=== PATIENT | female | born 1940 | race Caucasian/White ===

== ENCOUNTER 2019-02-02 14:19 | Emergency (ER) | payer MEDICARE, OTHER ==
[~2019-02-02] VITALS: Ht 170.2 cm; Wt 104.3 kg
--- NOTE | 2019-02-02 14:26 | ER.PDOC ---
General Chief Complaint: Requesting Medical Care Stated Complaint: KNEE PAIN Time seen by MD: 14:25 Source: patient Exam Limitations: no limitations History of Present Illness Initial Comments Right knee and hip pain S/P fall. She refused hitting her head. Occurred: just prior to arrival Severity: moderate Injuries/Pain Location: lower extremity Context: Lost Balance Loss of Consciousness: No Loss of Consciousness Associated Symptoms: denies symptoms Allergies: Coded Allergies: Penicillins (Verified Allergy, Unknown, R, 02/02/19) MEDS Reported Medications Warfarin Sodium (COUMADIN) 5 Mg Tablet, 1 TAB PO DAILY, #90 TAB 3 Refills 02/02/19 Diltiazem HCl (Diltiazem ER) 180 Mg Tab.er.24h, 1 TAB PO QD for 30 Days, #30 TAB 0 Refills 02/02/19 Sotalol Hcl (SOTALOL) 80 Mg Tablet, 1 TAB PO DAILY24, #180 TAB 3 Refills 02/02/19 Review of Systems Constitutional: no symptoms reported Respiratory: no symptoms reported Cardiovascular: no symptoms reported Gastrointestinal: no symptoms reported Musculoskeletal: see HPI All Other Systems: Reviewed and Negative Physical Exam General Appearance: No Apparent Distress, WD/WN Head: No Evidence of Injury Eyes: bilateral eye normal inspection Neck: Non-Tender, Normal Alignment, Nexus criteria neg, Normal Inspection Cardiovascular/Respiratory: Regular Rate, Rhythm, No M/R/G, Normal Peripheral Pulses, No JVD, Normal Breath Sounds, No Respiratory Distress Back: Normal Inspection, No CVA Tenderness, No Vertebral Tenderness Extremities: Pain With Movement (right hip), Tenderness (right knee with swelling) 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, No Motor/Sensory Deficits, Alert, Normal Mood/Affect, Oriented x 3 Skin: Normal Color, Warm/Dry [place] Coma Score Best Eye Response: (4) Open Spontaneously Best Verbal Response: (5) Oriented Best Motor Response: (6) Obeys Commands Results/Orders Results/Orders Orders - KATHERYN ZHANG MD Xr Knee Rt 2v (02/02/19 14:23) Ct Pelvis Wo Iv Contrast (02/02/19 14:23) Vital Signs Date Time Temp Pulse Resp B/P (MAP) Pulse Ox O2 Delivery O2 Flow Rate FiO2 02/02/19 15:00 18 02/02/19 15:00 97.2 78 18 155/88 (110) 95 Room Air 10/20/19 14:29 97.2 74 18 163/90 (114) 95 Room Air 02/02/19 14:26 18 02/02/19 14:22 97.2 74 18 95 Room Air Progress Progress Discussed with patient and son and she has a walker to use at home. EKG/XRAY/CT/US XRAY Comments: No fracture of left knee CT Comments: No fracture of pelvis Departure Time of Disposition: 16:33 Disposition: 01 HOME, SELF-CARE Impression: Primary Impression: Right knee injury Additional Impression: Injury of hip, right Condition: Stable Additional Instructions: Ice Tramadol F/U with your PCP in 1 week Duration or Time Spent with Pa: 45 mins Problem Qualifiers Primary Impression: Right knee injury Encounter type: initial encounter Qualified Codes: S89.91XA - Unspecified injury of right lower leg, initial encounter Additional Impression: Injury of hip, right Encounter type: initial encounter Qualified Codes: S79.911A - Unspecified injury of right hip, initial encounter KATHERYN ZHANG MD Feb 02, 2019 14:26
[2019-02-02 14:29] VITALS: BP 163/90
--- NOTE | 2019-02-02 14:30 | NUR ---
ARRIVAL PATIENT ARRIVED TO ED6 VIA GURNEY BY [facility], EMS WAS DINING AT [facility] WHEN SHE GOT UP TO USE THE RESTROOM SHE WAS WALKING UP AN INCLINE AND HER FOOT GOT CAUGHT CAUSING HER TO FALL ON HER RIGH KNEE, DENIES ANY OTHER INJURY OR LOC, ABRASION AND DEFORMITY NOTED TO RIGHT KNEE AREA. EMS ATTEMPTED IV ACCESS WITHOUT SUCCESS, DID GIVE MORPHINE 2MG IM VICE CHAIRMAN, PATIENT IS AWAKE ALERT ORIENTED X4, FAMILY AT BEDSIDE.
[2019-02-02] MEDS ORDERED: WARF5TAB PO (14:54)
[2019-02-02] MEDS ORDERED: SOTA80TA PO (14:54)
[2019-02-02] MEDS ORDERED: DILT180T7 PO (14:54)
[2019-02-02 15:00] VITALS: BP 155/88
--- NOTE | 2019-02-02 15:01 | NUR ---
CAT SCAN PATIENT TO CAT SCAN WITH ARPAN FROM RADIOLOGY.
--- NOTE | 2019-02-02 15:18 | NUR ---
CAT SCAN PATIENT BACK FROM CAT SCAN..
--- NOTE | 2019-02-02 15:31 | DIREP ---
PROCEDURE:XRAY KNEE 2 VWS-RT COMPARISON:None. INDICATIONS:Pain/injury FINDINGS: BONES:Early spurring of the superior patellar pole. JOINTS:Small joint effusion. No evidence of dislocation. SOFT TISSUES:Moderate ventral and lateral, superficial soft tissue swelling. OTHER:No additional findings. CONCLUSION: No evidence of acute fracture. Superficial soft tissue swelling as above Dictated by: Ayesha Santoyo M.D. on 02/02/2019 at 03:29 PM
--- NOTE | 2019-02-02 15:56 | DIREP ---
PROCEDURE:CT PELVIS W/O COMPARISON:None. INDICATIONS:Right hip pain/injury S/P fall TECHNIQUE:Helical CT imaging of the pelvis was obtained. Post processing reconstructed images in the sagittal and coronal planes were generated and reviewed. No IV contrast was administered FINDINGS: BONES: There is no evidence of fracture. Morphology the osseous structures appears physiologic. SOFT TISSUES: The soft tissues are within normal limits. Atheromatous calcifications noted. Prior hysterectomy JOINT: The alignment is anatomic. There is no dislocation. OTHER: Degenerative changes of the included portions of the lower lumbar spine. CONCLUSION:No evidence of acute fracture Dictated by: Ayesha Santoyo M.D. on 02/02/2019 at 03:52 PM
== END 2019-02-02 17:14 | disposition home or self-care (01) ==
LOC: ER 14:19 → EDBD 14:19 → ER 17:14
DX: S79.911A Unspecified injury of right hip, initial encounter (principal); S89.91XA Unspecified injury of right lower leg, initial encounter; Z79.01 Long term (current) use of anticoagulants; Z88.0 Allergy status to penicillin; W19.XXXA Unspecified fall, initial encounter; Y93.89 Activity, other specified; Y92.89 Other specified places as the place of occurrence of the external cause; Y99.8 Other external cause status
CPT/HCPCS: 72192; 73560; 99284

== ENCOUNTER 2020-10-06 18:44 | Emergency (ER) | payer MEDICARE, OTHER ==
[~2020-10-06] VITALS: Ht 162.6 cm; Wt 145.1 kg
[~2020-10-06 18:44] MED LIST: DILT180T7 PO; SOTA80TA PO; WARF5TAB2 PO
--- NOTE | 2020-10-06 19:50 | NUR ---
Patient presents to ED with C/O unable to urinate, lower abdominal pain. Patient's son states, "We have been to [facility] two days in a row and they haven't done anything for her." She states, "I'm hoping to be admitted here because I need to be." Patient is alert, rates pain 9/10 in lower abdomen radiating to the right side of back. Denies N/V/D, fever. Patient has history of cancer and one kidney has been removed. She also had a kidney stone about three years ago. No other pertinent history.
[2020-10-06 20:06] VITALS: BP 114/61
[2020-10-06 20:19] VITALS: BP 114/61
--- NOTE | 2020-10-06 20:59 | ER.PDOC ---
General Chief Complaint: Female Urogenital Problems Stated Complaint: FEMALE Time seen by MD: 20:48 Source: patient, family Exam Limitations: no limitations History of Present Illness Initial Comments 80-year-old female diagnosed with kidney stone at [facility] brought in by son with complaint of patient unable to urinate today. He states she is showing signs of hydronephrosis and was to have her checked again. Patient has been seen at [facility] twice in the past 24 hours both times she was discharged home.Patient had labs drawn at [facility] on October 04 at 2327 and her chemistry was within normal limits. BUN was 20 creatinine 1.2 creatinine clearance 37.09. There was a CT performed of her abdomen pelvis however the reading is not included. Per the son she had a 5 mm stone. Allergies: Coded Allergies: Penicillins (Verified Allergy, Unknown, R, 02/02/19) Home Meds Reported Medications Warfarin Sodium (COUMADIN) 5 Mg Tablet, 1 TAB PO DAILY, #90 TAB 3 Refills 02/02/19 Diltiazem HCl (Diltiazem ER) 180 Mg Tab.er.24h, 1 TAB PO QD for 30 Days, #30 TAB 0 Refills 02/02/19 Sotalol Hcl (SOTALOL) 80 Mg Tablet, 1 TAB PO DAILY24, #180 TAB 3 Refills 02/02/19 Past Medical History Medical History: cardiac problems, hypertension, renal disease Surgical History: cholecystectomy, pacemaker/ICD Social History Alcohol Use: none Drug Use: none Review of Systems Constitutional: no symptoms reported EENTM: no symptoms reported Respiratory: no symptoms reported Cardiovascular: no symptoms reported Gastrointestinal: nausea Physical Exam General Appearance: No Apparent Distress, WD/WN EENT: nml ENT inspection Neck: nml inspection, non-tender Cardiovascular/Respiratory: Regular Rate, Rhythm, Normal Peripheral Pulses Abdomen: Soft, Tenderness Back: CVA tenderness Extremities: Normal Range of Motion, Normal Inspection, No Calf Tenderness 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 (10/06/20 22:31) Ekg-Routine (10/06/20 22:31) Lidocaine Hcl (Lidocaine 1% Vial) (10/06/20 23:32) Ceftriaxone Sodium (Rocephin) (10/06/20 23:32) Fentanyl Citrate/Pf (Sublimaze) (10/06/20 23:36) Vital Signs Date Time Temp Pulse Resp B/P (MAP) Pulse Ox O2 Delivery O2 Flow Rate FiO2 10/06/20 20:19 98.7 75 18 10/06/20 20:06 98.7 75 18 95 10/06/20 20:06 98.7 75 18 114/61 (78) 95 Laboratory Tests Test 10/06/20 21:08 10/06/20 21:23 10/06/20 21:35 10/06/20 22:57 Urine Collection Type RANDOM Urine Color BROWN Urine Appearance CLOUDY Urine Bilirubin MODERATE (NEGATIVE) H Urine Ictotest NEGATIVE (NEGATIVE) Urine Ketones 15 mg/dL (NEGATIVE) H Urine Specific [place] 1.025 (1.005-1.030) Urine pH 5.0 (4.5-8.0) Urine Protein >=300 mg/dL (NEGATIVE) H Urine Urobilinogen 0.2 E.U./dL (0.2) Urine Nitrate POSITIVE (NEGATIVE) H Urine Leukocyte Esterase SMALL (NEGATIVE) H Urine Glucose (Auto)(UA) NEGATIVE (NEGATIVE) Urine Blood LARGE (NEGATIVE) H Urine RBC TNTC RBC/HPF (NONE SEEN) H Urine WBC TNTC WBC/HPF (0-2) H Urine Squamous Epithelial Cells MANY #/HPF (FEW) Urine Bacteria MANY (NONE SEEN) H Urine Other MUCOUS 1+ #/HPF White Blood Count 15.4 10^3/uL (4.5-11.0) H Red Blood Count 4.35 10^6/uL (4.00-5.20) Hemoglobin 13.1 g/dL (12.0-15.0) Hematocrit 42.3 % (36.0-46.0) Mean Corpuscular Volume 97.2 fL (78-100) Mean Corpuscular Hemoglobin 30.1 pg (26-34) Mean Corpuscular Hemoglobin Concent 31.0 g/dL (33-36.5) L Red Cell Distribution Width 13.7 % (11.5-14.5) Platelet Count 93 10^3/uL (150-400) L Mean Platelet Volume 11.7 fL (7.8-11.0) H Neutrophils (%) (Auto) 87.7 % (41.0-85.0) H Lymphocytes (%) (Auto) 5.2 % (24.0-44.0) *L Monocytes (%) (Auto) 6.1 % (5.0-12.0) Neutrophils # (Auto) 13.5 10^3/uL (1.8-7.7) H Lymphocytes # (Auto) 0.80 10^3/uL1 (1.0-4.8) L Monocytes # (Auto) 0.9 10^3/uL (0.3-0.8) H Absolute Immature Granulocyte (auto 0.14 10^3 u/L (0-2) Absolute Eosinophils (auto) 0.0 10^3/uL (0.0-0.2) Immature Granulocytes % 0.90 % (0.00-0.50) H Eosinophils % 0.0 % (0.0-5.0) Basophils % 0.1 % (0.0-0.2) Basophils # 0.0 10^3/uL (0.0-0.1) Differential Total Cells Counted 100 #CELLS Segmented Neutrophils 86 % (31-76) H Band Neutrophils 4 % (2-6) Lymphocytes 6 % (25-36) L Monocytes 4 % (3-9) Platelet Estimate DECREASED Platelet Morphology NORMAL Blood Morphology Comment NORMAL MORPHOLOGY Prothrombin Time 31.6 SEC (9.6-12.0) H Prothrombin Time INR (Non-Therap) 3.1 Activated Partial Thromboplast Time 44.3 SEC (24.67-30.72) Sodium Level 135 mmol/L (132-145) Potassium Level 4.5 mmol/L (3.6-5.2) Chloride Level 102.0 mmol/L (96-109) Carbon Dioxide Level 20.9 mmol/L (20.0-32) Glucose Level 114 mg/dL (70-110) H Blood Urea Nitrogen 33 mg/dL (7-18) H Creatinine 4.43 mg/dL (0.59-1.40) *H Calcium Level 8.4 mg/dL (8.4-10.5) Anion Gap 16.6 Estimated GFR () 11.6 (>/=60) Est GFR (CKD-EPI)(Non-Afr Ghanaian) 9.6 (>/=60) BUN/Creatinine Ratio 7.[address] scan was repeated here which showed a 5 mm proximal right ureter stone with mild upstream hydronephrosis. There is also moderate right perinephric stranding patient has a white blood cell count of 15.4 with 87% neutrophils she also has a UTI her UA shows positive nitrates small leuk esterase and too nu merous to count white blood cells red blood cells and many bacteria patient also has worsening renal function when she was seen at [facility] on 621 her creatinine was 1.2 today her creatinine is 4.43 her BUN is also 33 today on 621 at [facility] it was 20. I spoke with our urologist who states because of her work and worsening renal function he is uncomfortable keeping her at our facility since we do not have a alternative financing specialist here. He recommended transferring her to a facility that has both services so that she can received optimal care. Patient and her family are aware of the need for transfer and aware of her laboratory values as well as CT scan results they are agreeable with transfer. Patient has had Rocephin here in the emergency department as she is currently having a line placed. She has been accepted to [facility] as an ER to ER transfer. Dr. Hung Handley is excepting.. I did speak with the urologist on-call who states he is willing to consult. Consult/PCP Time Consult/PCP Called: 23:29 Consult/PCP: Janina Reason/Comments: transfer to facility with nephrology and urology ER DEPART Departure Time of Disposition: 23:25 Disposition: 01 HOME / SELF CARE / HOMELESS Impression: Primary Impression: Ureteral stone with hydronephrosis Additional Impressions: UTI (urinary tract infection) Acute renal failure History of nephrectomy, left Condition: Improved If Transfer, List PT Destinati: [facility] Referrals: PCP,UNKNOWN (PCP) PRIMARY CARE PROVIDER Duration or Time Spent with Pa: 40 Critical Care Note Total Time (mins): 35 Comments Patient required approximately 35 minutes of critical care time. This critical care time includes review of old records from [facility] that the patient brought with her. It required multiple reevaluations of the patient. This time also includes reviewing interpretation of labs and imaging studies. Required contact with our urologist here at our facility. It also required multiple phone calls to other facilities to find one that can accept her for transfer. I also spoke with the warehouse consultant at the accepting facility to explain patient's condition.No procedures are included in this critical care time. Problem Qualifiers MIKE MAHONEY MD Oct 06, 2020 20:59
[2020-10-06 21:00] VITALS: BP 128/71
[2020-10-06 21:30] LABS: BASOPHIL % 0.1 % (0.0-0.2); LYMPHOCYTES % 5.2 % (24.0-44.0); MEAN CORP HGB 30.1 pg (26-34); MONOCYTES # 0.9 10^3/uL (0.3-0.8); MONOCYTES % 6.1 % (5.0-12.0); NEUTROPHIL # 13.5 10^3/uL (1.8-7.7); NEUTROPHILS % 87.7 % (41.0-85.0); PLATELET COUNT 93 10^3/uL (150-400); RED CELL DISTRIBUTION WIDTH 13.7 % (11.5-14.5)
[2020-10-06 21:42] LABS: BILIRUBIN,URINE MODERATE (NEGATIVE); UA COLOR BROWN
[2020-10-06 21:44] LABS: UROBILINOGEN,URINE 0.2 E.U./dL (0.2)
[2020-10-06 22:00] VITALS: BP 134/77
[2020-10-06] MEDS ORDERED: ROCEPHIN 1,000 MG in NS 100ML 100 ML IV SCH (22:00)
--- NOTE | 2020-10-06 22:02 | DIREP ---
PROCEDURE:CT ABDOMEN/PELVIS W/O CONTRAST COMPARISON:None. INDICATIONS:kidney stone TECHNIQUE:Axial images were created through the abdomen and pelvis without intravenous contrast material. No oral contrast was administered. Sagittal and coronal reconstructions were performed from source images. FINDINGS: LUNG BASES:Subsegmental atelectasis/scarring bilaterally. Top-normal heart size. Pacer leads are partially visualized in the right atrium and right ventricle. Left atrial appendage occluder device is partially visualized. Aortic valve replacement noted. LIVER:Normal for technique. BILIARY:The gallbladder is surgically absent. There is no biliary ductal dilatation. PANCREAS:Normal for technique. SPLEEN:Normal for technique. ADRENALS:The left adrenal is not visualized. The right adrenal is mildly thickened without discrete nodule. URINARY TRACT:The left kidney is surgically absent. There is a 5 mm calculus in the proximal right ureter with mild upstream hydronephrosis. There is retained excreted IV contrast in the right renal collecting system. No contour deforming renal mass. Smaller caliceal calculi are seen measuring up to 3 mm. Moderate right perinephric stranding. AORTA/VASCULAR:Severe scattered calcified atherosclerosis without abdominal aortic aneurysm. A right renal artery stent is noted. Patency is not assessed without IV contrast. RETROPERITONEUM:Normal. No mass or adenopathy. BOWEL/MESENTERY:There is mild colonic diverticulosis without evidence for diverticulitis. There is no intestinal obstruction, free fluid, free air or mesenteric inflammatory changes. Normal appendix. ABDOMINAL WALL:Diastasis rectus. Small fat containing ventral hernia defect. PELVIC ORGANS:The uterus is surgically absent. The urinary bladder is collapsed, limiting evaluation. No suspicious adnexal mass. BONES:Median sternotomy changes. No acute or aggressive osseous abnormality. Degenerative changes in the spine. Mild dextroscoliosis of the lumbar spine. OTHER:Noncontrast technique decreases diagnostic sensitivity. CONCLUSION: 1. Status post left nephrectomy. There is a 5 mm calculus in the proximal right ureter with mild upstream hydronephrosis. Additional caliceal calculi measuring up to 3 mm. Retained excreted IV contrast in the right renal collecting system from prior study. 2. Mild uncomplicated colonic diverticulosis and other incidental findings as above. Dictated by: Cesar Lazcano M.D. on 10/06/2020 at 09:52 PM
[2020-10-06 22:13] LABS: BAND NEUTROPHILS 4 % (2-6); LYMPHOCYTE 6 % (25-36); MONOCYTE 4 % (3-9); SEGMENTED NEUTROPHILS 86 % (31-76)
--- NOTE | 2020-10-06 22:59 | PCM.EKG ---
[facility] Test Date: 2020-10-06 Test Time: 22:52:36 Pat Name: RAYRAY BURNETTE Department: Patient ID: [facility]-[id number] Room: Gender: F Database Management Specialist: DUKE : 1940 Requested By: NEDA MAHONEY Order Number: [id number] Reading MD: Nead Mahoney Measurements Intervals [place] Rate: 73 P: [place]: 173 QRS: 78 QRSD: 113 T: 243 QT: 466 QTc: 514 Interpretive Statements Atrial-paced complexes Borderline intraventricular conduction delay Nonspecific T abnormalities, diffuse leads Prolonged QT interval No previous ECG available for comparison Electronically Signed On 10-08-2020 8:29:29 CDT by Neda Mahoney Please click the below link to view image of tracing.
[2020-10-06 23:00] VITALS: BP 109/46
[2020-10-06 23:10] LABS: CALCIUM 8.4 mg/dL (8.4-10.5); CARBON DIOXIDE 20.9 mmol/L (20.0-32)
[2020-10-06] MEDS ORDERED: ROCEPHIN ONE (23:32)
[2020-10-06] MEDS ORDERED: LIDOCAINE 1% VIAL ONE (23:32)
--- NOTE | 2020-10-06 23:34 | NUR ---
Initial contact to [facility] by Dr. Arango.
[2020-10-06] MEDS ORDERED: SUBLIMAZE ONE (23:36)
--- NOTE | 2020-10-06 23:39 | NUR ---
Dr. Handley in the ED at [facility] accepted patient.
--- NOTE | 2020-10-06 23:42 | NUR ---
This RN spoke with GUTIERREZ Landis to secure patient.
[2020-10-06 23:59] VITALS: BP 121/68
--- NOTE | 2020-10-07 00:20 | NUR ---
Dispatch called for need of ALS ground to [facility] ED.
--- NOTE | 2020-10-07 00:30 | NUR ---
[facility] arrived at facility. Report given to [facility]est[facility] Crna.
--- NOTE | 2020-10-07 00:37 | NUR ---
Ambulance leaving facility at this time.
== END 2020-10-07 00:30 | disposition home or self-care (01) ==
LOC: ER 18:44
DX: N17.9 Acute kidney failure, unspecified (principal); N13.6 Pyonephrosis; I10 Essential (primary) hypertension; Z79.01 Long term (current) use of anticoagulants; Z79.899 Other long term (current) drug therapy; Z88.0 Allergy status to penicillin; Z90.49 Acquired absence of other specified parts of digestive tract; Z90.5 Acquired absence of kidney; Z95.0 Presence of cardiac pacemaker
CPT/HCPCS: 36415; 36569; 74176; 80048; 81001; 85025; 85610; 85730; 87086; 93005; 99291; J0696 ×2; J2001; J3010; 99285